=== PATIENT | male | born 1945 | race Caucasian/White ===

== ENCOUNTER 2017-12-13 09:10 | Inpatient (IN) | payer OTHER ==
[~2017-12-13] VITALS: Ht 172.7 cm; Wt 94.1 kg
--- NOTE | 2017-12-13 09:15 | NUR ---
PATIENT AMBULATED TO BED 10
[2017-12-13 09:16] VITALS: BP 186/77
--- NOTE | 2017-12-13 09:20 | NUR ---
71Y/M BIB SELF C/O N/V & ABDOMINAL PAIN X LAST NIGHT. AAOX4, PATIENT STATES PAIN OF 10/10 AT THIS TIME; PATIENT POSITIONED FOR COMFORT; HOB ELEVATED; BEDRAILS UP X1; BED DOWN. ER MD MADE AWARE OF PT STATUS.
[2017-12-13] MEDS ORDERED: NACL 0.9% 1,000 ML IV ONE (09:23)
[2017-12-13] MEDS ORDERED: ONDANSETRON 4 MG/2 ML VIAL IVP ONE (09:25)
[2017-12-13] MEDS ORDERED: MORPHINE SULFATE 4 MG/ML SYR IVP ONE ×2 (09:25→10:45)
[2017-12-13 10:13] LABS: ALBUMIN 3.4 g/dL (3.4-5.0); ANION GAP 14.2 (8-16); ASPARTATE AMINOTRANSFERASE 49 U/L (15-37); CARBON DIOXIDE 24.4 mmol/L (21-32); CHLORIDE 102 mmol/L (98-107); CREATININE 1.9 mg/dL (0.7-1.3); GLUCOSE 268 mg/dL (74-106); LIPASE 155 U/L (73-393); POTASSIUM 4.6 mmol/L (3.5-5.1); SODIUM SERUM 136 mmol/L (136-145); UREA NITROGEN, BLOOD 19 mg/dL (7-18)
[2017-12-13 10:24] LABS: BASOPHILS # (AUTO) 0.1 K/uL (0.00-0.22); BASOPHILS % (AUTO) 0.6 % (0.0-2.0); EOSINOPHILS % (AUTO) 0.1 % (0.0-4.0); HEMATOCRIT 42.5 % (36-52); HEMOGLOBIN 14.4 g/dL (12.0-18.0); LYMPHOCYTES # (AUTO) 1.6 K/uL (2.0-11.5); LYMPHOCYTES % (AUTO) 17.7 % (20.5-51.1); MEAN CORPUSCULAR HEMOGLOBIN 33 pg (27-31); MEAN CORPUSCULAR HGB CONC 34 g/dL (33-37); MEAN CORPUSCULAR VOLUME 97.6 fL (80-94); MONOCYTES # (AUTO) 0.9 K/uL (0.8-1.0); MONOCYTES % (AUTO) 9.6 % (1.7-9.3); NEUTROPHILS # (AUTO) 6.5 K/uL (1.8-7.7); PLATELET COUNT (AUTO) 122 K/uL (140-450); RED BLOOD CELL COUNT(AUTO) 4.35 MIL/uL (4.20-6.10); RED CELL DISTRIBUTION WIDTH 13.9 % (11.6-13.7); WHITE BLOOD COUNT (AUTO) 9.1 K/uL (4.8-10.8)
[2017-12-13] MEDS ORDERED: LEVOFLOXACIN 750 MG/D5W PREMIX 150 ML IV ONE (10:45)
[2017-12-13] MEDS ORDERED: KETOROLAC 30 MG/ML VIAL IVP ONE (10:45)
[2017-12-13] MEDS ORDERED: NACL 0.9% 2,000 ML IV ONE (10:45)
[2017-12-13 11:42] LABS: BILIRUBIN,URINE NEGATIVE (NEGATIVE); BLOOD, URINE 1+ (NEGATIVE); COLOR,URINE YELLOW (YELLOW); LEUKOCYTE ESTERASE ,URINE NEGATIVE (NEGATIVE); NITRITE, URINE NEGATIVE (NEGATIVE); UGLUCOSE 2+ (NEGATIVE)
--- NOTE | 2017-12-13 12:00 | NUR ---
PT ADMITTED TO [facility]. ARRIVED TO UNIT VIA JORGE LUIS ACCOMPANIED BY RN. BEDSIDE REPORT GIVEN BY ER NURSE. LEVAQUIN IVPB STILL NEEDED TO BE INFUSED. COMPLETED INFUSION. PT AMBULATED TO BED WITH STEADY GAIT. PT IS AAOX4. ABLE TO STATE MEDICAL HX. MRSA SWAB DONE. ON RA. O2 SAT 99%. NO SOB. PT HAS PSORIASIS ON BUE, BLE, CHEST AND BUTTOCKS. ILEOSTOMY PRESENT TO R ABD. PT DENIES PAIN. ORIENTED PT TO ROOM AND CALL LIGHT. NO SIGNS OF DISTRESS. WILL CONTINUE TO MONITOR.
[2017-12-13 12:01] LABS: APPEARANCE,URINE CLEAR (CLEAR); RBC,URINE 0-5 (RARE) /HPF (0-5); WBC,URINE 0-5 (RARE) /HPF (0-5)
--- NOTE | 2017-12-13 12:03 | NUR ---
Patient will be admitted to care of DR. SMITH. Admited to MS. Will go to room 111A. Belongings list completed. Report to LOLIS SMITH.
[2017-12-13] MEDS ORDERED: LORazepam 2 MG/ML VIAL IVP PRN (13:25)
[2017-12-13] MEDS ORDERED: ACETAMINOPHEN 325 MG TAB PO PRN (13:25)
[2017-12-13] MEDS ORDERED: HYDROcodone/APAP 5/325 MG 1 TAB TAB PO PRN (13:25)
[2017-12-13] MEDS ORDERED: DEXT 5% /NACL 0.9% 1,000 ML IV SCH (13:25)
[2017-12-13] MEDS ORDERED: LEVOFLOXACIN 500 MG/D5W PREMIX 100 ML IV SCH (14:00)
--- NOTE | 2017-12-13 14:45 | NUR ---
PT SLEEPING WITH VISIBLE RESPIRATIONS. PT DENIES PAIN. USED URINAL. 150 ML OUTPUT OF DARK YELLOW URINE NOTED. NO SIGNS OF DISTRESS. CALL LIGHT WITHIN REACH. WILL CONTINUE TO MONITOR.
[2017-12-13 16:00] VITALS: BP 163/71
[2017-12-13] MEDS: BLOOD GLUCOSE MONITORING 1 DEV DEV FS SCH ×2 (16:30→20:50)
[2017-12-13] MEDS: NACL 0.9% 1,000 ML IV SCH (16:40)
--- NOTE | 2017-12-13 17:30 | NUR ---
PT IS AWAKE. LYING IN BED. DENIES PAIN. TALKING WITH ROOMMATE. NO SIGNS OF DISTRESS. CALL LIGHT WITHIN REACH. WILL CONTINUE TO MONITOR.
[2017-12-13] MEDS: INSULIN LISPRO SLIDING SCALE 100 UNITS/ML VIAL SUBQ PRN (17:55)
--- NOTE | 2017-12-13 19:15 | NUR ---
ENDORSED PT TO PM NURSE FOR CONTINUITY OF CARE AT BED SIDE. PT STABLE CONDITION
--- NOTE | 2017-12-13 19:30 | NUR ---
RECEIVED REPORT FROM DAY SHIFT, PATIENT RESTING IN BED, AWAKE ALERT ORIENTED X4, NO S/S OF DISTRESS NOTED, RESPIRATION EVEN AND UNLABORED, ON ROOM AIR. BP 135/57 HR 71, O2SAT 96%, TEMP 98.3, IV PATENT AND INTACT, INFUSING NS 100ML/HR. PLAN OF CARE DISCUSSED, PATIENT VERBALIZED UNDERSTANDING, CALL LIGHT WITHIN REACH, SAFETY MEASURE ENSURED, WILL CONTINUE TO MONITOR.
--- NOTE | 2017-12-13 21:08 | NUR ---
BS 145, NO INSULIN COVERAGE NEEDED. PATIENT RESTING IN BED, WATCHING TV, NO S/S OF DISTRESS NOTED, CALL LIGHT WITHIN REACH, SAFETY MEASURE ENSURED, WILL CONTINUE TO MONITOR.
[2017-12-13] MEDS: ZOLPIDEM 5 MG TAB PO PRN (23:02)
[2017-12-13] MEDS: ONDANSETRON 4 MG/2 ML VIAL IVP PRN (23:02)
--- NOTE | 2017-12-13 23:19 | NUR ---
PATIENT ASKED FOR SLEEPING PILL, AND STATED," I AM TAKING SLEEPING PILL AT HOME." PAGED DR. SMITH, RECEIVED ORDER OF AMBIEN 5MG PO HS PRN FOR INSOMNIA. ORDER READ BACK AND DR. SMITH CONFIRMED.
[2017-12-13 23:43] VITALS: BP 135/70
--- NOTE | 2017-12-14 01:11 | NUR ---
PATIENT IS SLEEPING, NO S/S OF DISTRESS NOTED, RESPIRATION EVEN AND UNLABORED, CALL LIGHT WITHIN REACH, SAFETY MEASURE ENSURED, WILL CONTINUE TO MONITOR.
[2017-12-14] MEDS: NACL 0.9% 1,000 ML IV SCH ×3 (03:36→23:04)
--- NOTE | 2017-12-14 03:50 | NUR ---
NO CHANGE IN CONDITION, PATIENT IS SLEEPING, NO S/S OF DISTRESS NOTED, RESPIRATION EVEN AND UNLABORED, CALL LIGHT WITHIN REACH, SAFETY MEASURE ENSURED, WILL CONTINUE TO MONITOR.
--- NOTE | 2017-12-14 05:47 | NUR ---
STOOL LEAK FROM THE ILEOSTOMY, CLEANED THE PATIENT AND CHANGED THE BED SHEET. PATIENT RESTING IN BED NOW. NO S/S OF DISTRESS NOTED, RESPIRATION EVEN AND UNLABORED, WILL CONTINUE TO MONITOR.
[2017-12-14] MEDS: BLOOD GLUCOSE MONITORING 1 DEV DEV FS SCH ×4 (06:35→20:44)
[2017-12-14 07:00] LABS: BASOPHILS # (AUTO) 0.1 K/uL (0.00-0.22); BASOPHILS % (AUTO) 0.8 % (0.0-2.0); EOSINOPHILS # (AUTO) 0.2 K/uL (0-0.4); EOSINOPHILS % (AUTO) 2.7 % (0.0-4.0); HEMATOCRIT 39.9 % (36-52); HEMOGLOBIN 13.4 g/dL (12.0-18.0); LYMPHOCYTES # (AUTO) 2.2 K/uL (2.0-11.5); LYMPHOCYTES % (AUTO) 23.3 % (20.5-51.1); MEAN CORPUSCULAR HEMOGLOBIN 34 pg (27-31); MEAN CORPUSCULAR HGB CONC 34 g/dL (33-37); MEAN CORPUSCULAR VOLUME 99.5 fL (80-94); MONOCYTES % (AUTO) 10.3 % (1.7-9.3); NEUTROPHILS # (AUTO) 5.9 K/uL (1.8-7.7); NEUTROPHILS % (AUTO) 62.9 % (42.2-75.2); PLATELET COUNT (AUTO) 108 K/uL (140-450); RED BLOOD CELL COUNT(AUTO) 4.01 MIL/uL (4.20-6.10); RED CELL DISTRIBUTION WIDTH 13.8 % (11.6-13.7); WHITE BLOOD COUNT (AUTO) 9.3 K/uL (4.8-10.8)
--- NOTE | 2017-12-14 07:20 | NUR ---
ENDORSED PLAN OF CARE TO DAY SHIFT, PATIENT IS IN STABLE CONDITION.
--- NOTE | 2017-12-14 07:39 | NUR ---
REPORT RECEIVED FROM [facility] HOLD. PT IN STABLE CONDITION. ALERT AND ORIENTEDX4. SKIN IS INTACT. PT NOT IN PAIN. WILL CONTINUE TO MONITOR.
[2017-12-14 08:00] VITALS: BP 151/61
[2017-12-14 08:01] LABS: ANION GAP 13.3 (8-16); CARBON DIOXIDE 24.5 mmol/L (21-32); CHLORIDE 106 mmol/L (98-107); CREATININE 1.7 mg/dL (0.7-1.3); GLUCOSE 100 mg/dL (74-106); POTASSIUM 3.8 mmol/L (3.5-5.1); SODIUM SERUM 140 mmol/L (136-145); UREA NITROGEN, BLOOD 20 mg/dL (7-18)
[2017-12-14 08:26] LABS: MAGNESIUM 1.5 mg/dL (1.8-2.4)
--- NOTE | 2017-12-14 08:43 | NUR ---
DR FOY AT BEDSIDE FOR NEPHROLOGY CONSULT.
[2017-12-14 08:46] LABS: PROTHROMBIN TIME 21.9 secs (10.8-13.4)
--- NOTE | 2017-12-14 09:52 | NUR ---
PATIENT HAS BEEN SCREENED AND CATEGORIZED LOW NUTRITION RISK. PATIENT WILL BE SEEN WITHIN 7 DAYS OF ADMISSION. 12/19/[address]
[2017-12-14] MEDS: MORPHINE SULFATE 4 MG/ML SYR IVP PRN ×3 (10:28→20:45)
--- NOTE | 2017-12-14 10:42 | NUR ---
PAIN MED GIVEN. PT RATED PAIN 7/10. PT TOLERATED WELL. PT IS NOT IN DISTRESS. WILL CONTINUE TO MONITOR.
[2017-12-14] MEDS ORDERED: ATEN50TA2 PO (12:16)
[2017-12-14] MEDS ORDERED: WARF-82 PO (12:16)
[2017-12-14] MEDS ORDERED: SIMV10TA6 PO (12:16)
[2017-12-14] MEDS ORDERED: GLIM4TAB2 PO (12:16)
[2017-12-14] MEDS: INSULIN LISPRO SLIDING SCALE 100 UNITS/ML VIAL SUBQ PRN ×2 (12:28→17:34)
[2017-12-14] MEDS: ONDANSETRON 4 MG/2 ML VIAL IVP PRN ×2 (15:53→20:44)
[2017-12-14 16:00] VITALS: BP 173/80
--- NOTE | 2017-12-14 16:03 | NUR ---
PT WAS IN A TREMENDOUS AMOUNT OF PAIN. 8/10 AND NAUSEOUS. ZOFRAN GIVEN FOR NAUSEA AND MORPHINE GIVEN FOR PAIN. PT TOLERATED WELL. WILL CONTINUE TO MONITOR.
[2017-12-14] MEDS ORDERED: ATENOLOL 25 MG TAB PO SCH (16:30)
[2017-12-14] MEDS ORDERED: MAG SULF 2000 MG/WATER PREMIX 50 ML IV SCH (17:00)
--- NOTE | 2017-12-14 18:08 | NUR ---
4 UNITS GIVEN FOR BS OF 230. HUNG MAGNESIUM FOR MAG LAB OF 1.5. BLOOD PRESSURE PRESSURE MEDICATION GIVEN FOR A BLOOD PRESSURE OF 173/80. PT TOLERATED WELL. PT WENT TO SLEEP AFTER MEDS WERE GIVEN. WILL CONTINUE TO MONITOR.
--- NOTE | 2017-12-14 19:25 | NUR ---
RECEIVED REPORT FROM DAY SHIFT, PATIENT RESTING IN BED, AWAKE ALERT ORIENTED X4, NO S/S OF DISTRESS NOTED, RESPIRATION EVEN AND UNLABORED, ON ROOM AIR. IV PATENT AND INTACT, INFUSING NS 100ML/HR. PLAN OF CARE DISCUSSED, PATIENT VERBALIZED UNDERSTANDING, CALL LIGHT WITHIN REACH, SAFETY MEASURE ENSURED, WILL CONTINUE TO MONITOR.
--- NOTE | 2017-12-14 19:34 | NUR ---
ENDORSED PT TO NIGHT NURSE. PT IN STABLE CONDITION.
--- NOTE | 2017-12-14 20:54 | NUR ---
DUE MEDICATION GIVEN, PATIENT STATED NAUSEA AND PAIN 03/30, BP 130/79, HR 71, ZOFRAN AND MORPHINE 2MG ADMINISTER ORDERED, PATIENT TOLERATED WELL, WILL CONTINUE TO MONITOR.
[2017-12-14] MEDS ORDERED: SIMVASTATIN 10 MG TAB PO SCH (21:00)
[2017-12-14] MEDS ORDERED: FAMOTIDINE 20 MG TAB PO ONE (22:51)
--- NOTE | 2017-12-14 22:55 | NUR ---
PATIENT STATED," MY STOMACH HURT, IT FEELS LIKE THERE IS A LOT ACID. I NEED MEDICATION FOR THAT." PAGED DR. SMITH.A, RECEIVED ORDER OF PEPCID 20MG, PO DAILY, AND ONE DOES FOR TONIGHT. ORDER READ BACK AND DR. SMITH CONFIRMED.
[2017-12-14] MEDS: ZOLPIDEM 5 MG TAB PO PRN (23:02)
[2017-12-15] VITALS: BP 120/66
--- NOTE | 2017-12-15 00:35 | NUR ---
VITAL SIGNS STABLE, NO S/S OF DISTRESS NOTED, RESPIRATION EVEN AND UNLABORED, CALL LIGHT WITHIN REACH, SAFETY MEASURE ENSURED, WILL CONTINUE TO MONITOR.
--- NOTE | 2017-12-15 02:55 | NUR ---
PATIENT IS SLEEPING, NO S/S OF DISTRESS NOTED, RESPIRATION EVEN AND UNLABORED, CALL LIGHT WITHIN REACH, SAFETY MEASURE ENSURED, WILL CONTINUE TO MONITOR.
--- NOTE | 2017-12-15 04:36 | NUR ---
NO CHANGE IN CONDITION, NO S/S OF DISTRESS NOTED, RESPIRATION EVEN AND UNLABORED, CALL LIGHT WITHIN REACH, SAFETY MEASURE ENSURED, WILL CONTINUE TO MONITOR.
[2017-12-15 06:34] LABS: BASOPHILS # (AUTO) 0.1 K/uL (0.00-0.22); BASOPHILS % (AUTO) 0.7 % (0.0-2.0); EOSINOPHILS # (AUTO) 0.1 K/uL (0-0.4); EOSINOPHILS % (AUTO) 0.7 % (0.0-4.0); HEMATOCRIT 39.9 % (36-52); HEMOGLOBIN 13.5 g/dL (12.0-18.0); LYMPHOCYTES # (AUTO) 3.2 K/uL (2.0-11.5); MEAN CORPUSCULAR HEMOGLOBIN 33 pg (27-31); MEAN CORPUSCULAR HGB CONC 34 g/dL (33-37); MEAN CORPUSCULAR VOLUME 98.3 fL (80-94); MONOCYTES # (AUTO) 1.2 K/uL (0.8-1.0); MONOCYTES % (AUTO) 9.7 % (1.7-9.3); NEUTROPHILS # (AUTO) 7.7 K/uL (1.8-7.7); NEUTROPHILS % (AUTO) 62.9 % (42.2-75.2); PLATELET COUNT (AUTO) 122 K/uL (140-450); RED BLOOD CELL COUNT(AUTO) 4.06 MIL/uL (4.20-6.10); RED CELL DISTRIBUTION WIDTH 13.9 % (11.6-13.7); WHITE BLOOD COUNT (AUTO) 12.2 K/uL (4.8-10.8)
[2017-12-15 06:40] LABS: ANION GAP 14.3 (8-16); CARBON DIOXIDE 25.3 mmol/L (21-32); CHLORIDE 104 mmol/L (98-107); CREATININE 1.6 mg/dL (0.7-1.3); GLUCOSE 155 mg/dL (74-106); POTASSIUM 4.6 mmol/L (3.5-5.1); SODIUM SERUM 139 mmol/L (136-145); UREA NITROGEN, BLOOD 19 mg/dL (7-18)
[2017-12-15] MEDS: BLOOD GLUCOSE MONITORING 1 DEV DEV FS SCH ×2 (06:53→12:03)
--- NOTE | 2017-12-15 07:05 | NUR ---
RECEIVED REPORT FROM INTERIOR DESIGN CONSULTANT NURSE, PT IS SLEEPING IN BED BUT EASILY AWAKEN, PT IS AAOX4, AMBULATORY, PT HAS IV ON HIS RIGHT AC, PATENT, INTACT, FLUSHING WELL, NO S/S OF RESPIRATORY DISTRESS OR DISCOMFORT NOTED, DISCUSSED PLAN OF CARE WITH PT, PT VERBALIZED UNDERSTANDING, CALL LIGHT WITHIN REACH, WILL CONTINUE TO MONITOR.
[2017-12-15 07:11] LABS: PROTHROMBIN TIME 17.3 secs (10.8-13.4)
--- NOTE | 2017-12-15 07:22 | NUR ---
ENDORSED PLAN OF CARE TO DAY SHIFT, PATIENT IS IN STABLE CONDITION.
[2017-12-15 07:58] LABS: MAGNESIUM 2.1 mg/dL (1.8-2.4); PHOSPHORUS 3.8 mg/dL (2.5-4.9)
[2017-12-15 08:00] VITALS: BP 157/72
[2017-12-15] MEDS: NACL 0.9% 1,000 ML IV SCH (08:40)
[2017-12-15] MEDS ORDERED: ATENOLOL 50 MG TAB PO SCH (09:00)
[2017-12-15] MEDS ORDERED: FAMOTIDINE 20 MG TAB PO SCH (09:00)
[2017-12-15] MEDS: MORPHINE SULFATE 4 MG/ML SYR IVP PRN (09:07)
--- NOTE | 2017-12-15 10:00 | NUR ---
PT RESTING IN BED USING HIS CELL PHONE, NO S/S OF DISTRESS NOTED, CALL LIGHT WITHIN REACH.
[2017-12-15] MEDS ORDERED: LEVOFLOXACIN 500 MG/D5W PREMIX 100 ML IV SCH (11:00)
--- NOTE | 2017-12-15 12:03 | NUR ---
PT BLOOD GLUCOSE 218. PT REFUSED INSULIN AT THIS TIME. EDUCATED PT ON HYPERGLYCEMIA. PT STATED HE STILL DID NOT WANT THE INSULIN AND WOULD TAKE HIS OWN INSULIN ONCE HE WAS AT HOME LATER TODAY.
--- NOTE | 2017-12-15 12:25 | NUR ---
SPOKE TO DR. SMITH I LET HIM KNOW THE PATIENT WANTED TO BE DISCHARGED. DR. SMITH SAID IT WAS FINE HE COULD BE DISCHARGED. I LET HIM KNOW THE PATIENT WAS WAITING FOR MEDICATION SCRIPTS.
--- NOTE | 2017-12-15 12:30 | NUR ---
DISCHARGE INSTRUCTIONS GIVEN, IV REMOVED, ID WRIST BAND REMOVED.
--- NOTE | 2017-12-15 12:34 | NUR ---
PT STATED HE WANTED TO GO HOME AND COULD NOT WAIT FOR DR. SMITH ANY LONGER. THE PATIENT SAID HE WOULD BE FOLLOWING UP WITH HIS DOCTOR AND HIS DOCTORS OFFICE WOULD BE GIVING HIM A SCRIPT. PAGED DR. SMITH TO LET HIM KNOW.
--- NOTE | 2017-12-15 12:35 | NUR ---
PT STABLE UPON DISCHARGE.
--- NOTE | 2017-12-15 12:42 | NUR ---
SPOKE TO DR. ROSADO HE WAS CALLING TO ASK IF PATIENT COULD FOLLOW UP ON MONDAY INSTEAD OF MONDAY. I LET THE DOCTOR KNOW THE PATIENT HAD JUST LEFT.
--- NOTE | 2017-12-15 13:00 | NUR ---
RECEIVED PHONE CALL FROM DR. SMITH. I LET HIM KNOW THE PATIENT DID NOT WANT TO WAIT FOR THE SCRIPTS AND HAD DECIDED TO LEAVE.
[2017-12-15] MEDS ORDERED: WARFARIN 5 MG TAB PO SCH (17:00)
== END 2017-12-15 12:35 | disposition home or self-care (01) | DRG 682 ==
LOC: MED 09:10 → MTU 11:17
PROVIDERS: ADMIT Preventive Medicine Preventive Medicine/Occupational Environmental Medicine; ATTEND Preventive Medicine Preventive Medicine/Occupational Environmental Medicine
DX: N17.9 Acute kidney failure, unspecified (principal); R65.11 Systemic inflammatory response syndrome (SIRS) of non-infectious origin with acute organ dysfunction; E11.65 Type 2 diabetes mellitus with hyperglycemia; N13.2 Hydronephrosis with renal and ureteral calculous obstruction; I10 Essential (primary) hypertension; K57.90 Diverticulosis of intestine, part unspecified, without perforation or abscess without bleeding; I25.10 Atherosclerotic heart disease of native coronary artery without angina pectoris; R74.0 Nonspecific elevation of levels of transaminase and lactic acid dehydrogenase [LDH]; Z95.1 Presence of aortocoronary bypass graft; Z93.2 Ileostomy status
CPT/HCPCS: 36415; 80048; 80053; 81001; 82948; 83605; 83690; 83735; 84100; 85025; 85610; 85651; 86140; 87040; 87081; 96361; 96365; 96375; 96376; 99285; J1815; J1885; J1956; J2270; J2405; J3475; J7030; J7042